=== PATIENT | male | born 1965 | race Caucasian/White ===

== ENCOUNTER → 2018-08-31 12:30 | Outpatient (CLI) | payer BC ==
[2018-08-31 13:34] LABS: ALBUMIN 3.5 g/dL (3.4-5.0); BILIRUBIN - DIRECT 0.17 mg/dL (0.00-0.30); BILIRUBIN - INDIRECT 1.33 mg/dL (0.00-1.00); BILIRUBIN - TOTAL 1.5 mg/dL (0.2-1.3); PROTEIN - SERUM 6.8 g/dL (6.4-8.2)
[2018-09-01 15:13] LABS: HEPATITIS C ANTIBODY 0.1 S/CO RAT (0.0-0.9)
== END | disposition home or self-care (01) ==
LOC: D.NM 12:30
PROVIDERS: ATTEND Internal Medicine Gastroenterology
DX: E80.6 Other disorders of bilirubin metabolism (principal); K80.20 Calculus of gallbladder without cholecystitis without obstruction